=== PATIENT | female | born 1945 | race Hispanic/Latino ===

== ENCOUNTER → 2017-11-19 | Outpatient (CLI) | payer OTHER | END | disposition home or self-care (01) | LOC: RAH 08:43 | PROVIDERS: ATTEND Family Medicine | DX: Z12.31 Encounter for screening mammogram for malignant neoplasm of breast (principal); I10 Essential (primary) hypertension; E11.9 Type 2 diabetes mellitus without complications; E78.5 Hyperlipidemia, unspecified; M81.0 Age-related osteoporosis without current pathological fracture; Z79.899 Other long term (current) drug therapy | CPT/HCPCS: 77067 ==

== ENCOUNTER → 2018-03-22 | Outpatient (CLI) | payer OTHER ==
[~2018-03-22] MED LIST: IOHEXOL 350 MG/ML 100ML INFUS..BTL IV ONE
== END | disposition home or self-care (01) ==
LOC: OIH 08:59
PROVIDERS: ATTEND Obstetrics & Gynecology
DX: R16.0 Hepatomegaly, not elsewhere classified (principal); K57.90 Diverticulosis of intestine, part unspecified, without perforation or abscess without bleeding
CPT/HCPCS: 74178; Q9967

== ENCOUNTER → 2018-11-11 | Outpatient (CLI) | payer OTHER | END | disposition home or self-care (01) | LOC: RAH 09:27 | PROVIDERS: ATTEND Family Medicine | DX: Z12.31 Encounter for screening mammogram for malignant neoplasm of breast (principal) | CPT/HCPCS: 77067 ==

== ENCOUNTER → 2019-01-06 | Outpatient (CLI) | payer OTHER ==
[2019-01-06 09:24] LABS: BASOPHILS % (AUTO) 0.3 % (0.0-5.0); EOSINOPHILS % (AUTO) 1.1 % (0.0-8.0); HEMATOCRIT 37.9 % (36-48); LYMPHOCYTES % (AUTO) 27.2 % (21.0-51.0); MEAN CORPUSCULAR HEMOGLOBIN 28.6 pg (27.0-33.0); MEAN CORPUSCULAR HGB CONC 33.5 g/dL (32.0-36.0); MEAN CORPUSCULAR VOLUME 85.4 fL (79-99); MONOCYTES % (AUTO) 5.8 % (3.0-13.0); NEUTROPHILS % (AUTO) 65.6 % (40.0-77.0); PLATELET COUNT (AUTO) 200 K/uL (130-400); RED BLOOD CELL COUNT(AUTO) 4.44 MIL/uL (4.00-5.50); RED CELL DISTRIBUTION WIDTH 15.7 % (11.0-15.5); WHITE BLOOD COUNT (AUTO) 8.3 K/uL (4.8-10.8)
[2019-01-06 09:34] LABS: HEMOGLOBIN A1C 8.2 % (4.0-6.0)
[2019-01-06 09:49] LABS: ALBUMIN 3.3 g/dL (3.5-5.0); BILIRUBIN,DIRECT 0.2 mg/dL (0.0-0.3); BILIRUBIN,TOTAL 0.4 mg/dL (0.2-1.0); CREATININE 0.9 mg/dL (0.5-1.5); THYROID STIMULATING HORMONE 0.84 uIU/mL (0.36-3.74); TOTAL PROTEIN, SERUM 7.3 g/dL (6.0-8.3); URIC ACID 6.8 mg/dL (2.6-7.2)
== END | disposition home or self-care (01) ==
LOC: LAB 08:33
PROVIDERS: ATTEND Internal Medicine
DX: Z12.11 Encounter for screening for malignant neoplasm of colon (principal); E11.65 Type 2 diabetes mellitus with hyperglycemia; I10 Essential (primary) hypertension; R10.13 Epigastric pain; E53.8 Deficiency of other specified B group vitamins; E26.1 Secondary hyperaldosteronism; E11.51 Type 2 diabetes mellitus with diabetic peripheral angiopathy without gangrene; E11.59 Type 2 diabetes mellitus with other circulatory complications; E11.40 Type 2 diabetes mellitus with diabetic neuropathy, unspecified; M81.0 Age-related osteoporosis without current pathological fracture
CPT/HCPCS: 36415; 80053; 80061; 80076; 82043; 82270; 82306; 83036; 83970; 84443; 84550; 85025; 86677

== ENCOUNTER → 2019-03-27 | Outpatient (CLI) | payer OTHER ==
[~2019-03-27] VITALS: Ht 134.6 cm; Wt 74.4 kg
[~2019-03-27] MED LIST changes: -IOHEXOL 350 MG/ML 100ML INFUS..BTL IV ONE; +REGADENOSON 0.4 MG/5 ML PF SYG IVP SCH
== END | disposition home or self-care (01) ==
LOC: RAH 08:34
PROVIDERS: ATTEND Internal Medicine
DX: I50.30 Unspecified diastolic (congestive) heart failure (principal)
CPT/HCPCS: 78452; 93017; 96374; A9500 ×2; J2785

== ENCOUNTER → 2019-07-17 | Outpatient (CLI) | payer OTHER ==
[2019-07-17 08:41] LABS: BASOPHILS % (AUTO) 0.5 % (0.0-5.0); EOSINOPHILS % (AUTO) 1.6 % (0.0-8.0); HEMATOCRIT 37.8 % (36-48); LYMPHOCYTES % (AUTO) 40.9 % (21.0-51.0); MEAN CORPUSCULAR HEMOGLOBIN 28.2 pg (27.0-33.0); MEAN CORPUSCULAR HGB CONC 31.2 g/dL (32.0-36.0); MEAN CORPUSCULAR VOLUME 90.2 fL (79-99); MONOCYTES % (AUTO) 7.6 % (3.0-13.0); NEUTROPHILS % (AUTO) 49.1 % (40.0-77.0); PLATELET COUNT (AUTO) 237 K/uL (130-400); RED BLOOD CELL COUNT(AUTO) 4.19 MIL/uL (4.00-5.50); WHITE BLOOD COUNT (AUTO) 6.5 K/uL (4.8-10.8)
[2019-07-17 08:55] LABS: HEMOGLOBIN A1C 8.3 % (4.0-6.0)
[2019-07-17 09:01] LABS: ALBUMIN 3.4 g/dL (3.5-5.0); BILIRUBIN,DIRECT 0.1 mg/dL (0.0-0.3); POTASSIUM 4.1 mmol/L (3.5-5.1); THYROID STIMULATING HORMONE 0.42 uIU/mL (0.36-3.74); TOTAL PROTEIN, SERUM 7.3 g/dL (6.0-8.3); URIC ACID 7.4 mg/dL (2.6-7.2)
[2019-07-17 09:04] LABS: BILIRUBIN,TOTAL 0.5 mg/dL (0.2-1.0); CREATININE 0.7 mg/dL (0.5-1.5)
== END | disposition home or self-care (01) ==
LOC: LAB 07:31
PROVIDERS: ATTEND Internal Medicine
DX: I11.0 Hypertensive heart disease with heart failure (principal); I50.30 Unspecified diastolic (congestive) heart failure; A04.8 Other specified bacterial intestinal infections; R10.13 Epigastric pain; R93.1 Abnormal findings on diagnostic imaging of heart and coronary circulation; E11.40 Type 2 diabetes mellitus with diabetic neuropathy, unspecified; E53.8 Deficiency of other specified B group vitamins; Z12.11 Encounter for screening for malignant neoplasm of colon; Z13.1 Encounter for screening for diabetes mellitus
CPT/HCPCS: 36415; 80053; 80061; 80076; 82043; 82270; 83036; 83090; 83970; 84443; 84550; 85025

== ENCOUNTER 2019-08-21 22:25 | Observation (INO) | payer OTHER ==
[~2019-08-21] VITALS: Ht 154.9 cm; Wt 71.4 kg
[2019-08-21 23:14] LABS: BASOPHILS % (AUTO) 0.5 % (0.0-5.0); EOSINOPHILS % (AUTO) 1.5 % (0.0-8.0); HEMATOCRIT 37.1 % (36-48); LYMPHOCYTES % (AUTO) 31.2 % (21.0-51.0); MEAN CORPUSCULAR HEMOGLOBIN 27.8 pg (27.0-33.0); MEAN CORPUSCULAR HGB CONC 31.3 g/dL (32.0-36.0); MONOCYTES % (AUTO) 6.7 % (3.0-13.0); NEUTROPHILS % (AUTO) 59.9 % (40.0-77.0); PLATELET COUNT (AUTO) 228 K/uL (130-400); RED BLOOD CELL COUNT(AUTO) 4.17 MIL/uL (4.00-5.50); RED CELL DISTRIBUTION WIDTH 14.6 % (11.0-15.5); WHITE BLOOD COUNT (AUTO) 8.5 K/uL (4.8-10.8)
[2019-08-21 23:24] LABS: CREATININE 0.8 mg/dL (0.5-1.5); POTASSIUM 4.1 mmol/L (3.5-5.1)
[2019-08-21 23:28] LABS: INR 0.89 (0.85-1.15); PARTIAL THROMBOPLASTIN TIME 26.6 SEC (26.3-35.5); PROTHROMBIN TIME 9.7 SEC (9.6-11.6)
[2019-08-21 23:29] LABS: ALBUMIN 3.8 g/dL (3.5-5.0); BILIRUBIN,TOTAL 0.3 mg/dL (0.2-1.0); TOTAL PROTEIN, SERUM 7.8 g/dL (6.0-8.3)
[2019-08-21 23:48] LABS: APPEARANCE,URINE Clear (CLEAR); BILIRUBIN,URINE Negative (NEGATIVE); COLOR,URINE Yellow (YELLOW); GLUCOSE, URINE (UA) Negative (NEGATIVE); KETONES,URINE Negative (NEGATIVE); LEUKOCYTE ESTERASE ,URINE Negative (NEGATIVE); NITRATE,URINE Negative (NEGATIVE); OCCULT BLOOD,URINE Negative (NEGATIVE); PROTEIN,URINE Negative (NEGATIVE); UROBILINOGEN,URINE 0.2 mg/dL (0.2-1.0)
[2019-08-22] VITALS (7 sets, daily range): BP systolic 140–184; BP diastolic 68–82
[2019-08-22] MEDS ORDERED: 1/2 NORMAL SALINE 1,000 ML IV SCH (00:15)
[2019-08-22] MEDS ORDERED: 1/2 NORMAL SALINE 1,000 ML IV ONE (00:18)
--- NOTE | 2019-08-22 01:00 | NUR ---
TEXTED DR. MENDOZA ABOUT PATIENT'S ARRIVAL TO THE FLOOR FROM ER. DOCTOR REPLIED BACK AND IS AWARE.
[2019-08-22] MEDS ORDERED: METF-446 PO (01:51)
[2019-08-22] MEDS ORDERED: CYAN1TAB44 PO (01:51)
[2019-08-22] MEDS ORDERED: ATOR10 PO (01:51)
[2019-08-22] MEDS ORDERED: LISI40TA4 PO (01:51)
[2019-08-22] MEDS ORDERED: GLIM4TAB36 PO (01:51)
[2019-08-22 02:59] LABS: HEMATOCRIT 31.8 % (36-48)
--- NOTE | 2019-08-22 06:52 | NUR ---
patient had 1 bright red stool in the ER and 2 bright red stools with clots at 03:00 am and at 07:[address] Martinez spoke with the patient and ordered cbc with cmp in the am of 08/23/19
[2019-08-22 07:17] LABS: HEMATOCRIT 31.9 % (36-48)
--- NOTE | 2019-08-22 11:35 | NUR ---
NURSING NOTE Paged Dr. Ford. Received called back form himearlier. And now from nurse. SHe asked several questions about case and stated she will call back with recommendations.
[2019-08-22] MEDS ORDERED: PEG 3350/NA SULF,BICARB,CL/KCL 4000 ML SOLN PO ONE (14:00)
--- NOTE | 2019-08-22 15:24 | NUR ---
COLONOSCOPY Patient started on golytely at 1400 in preparation for colonoscopy tomorrow at 10:00am as ordered by Dr. Ford. Procedure will be done by Dr. Randhawa.
--- NOTE | 2019-08-22 20:15 | NUR ---
COLONOSCOPY PREPARATION AND UPDATE Patient finished her colonoscopy preparation soon and has been having bowel movements. States the color os yellow and that she has no more stool coming out; not even small pieces. States she is not bleeding anymore. Signed consent for colonoscopy and filed in chart. Tolerated preparation well. NPO after midnight.
[2019-08-23] VITALS (21 sets, daily range): BP systolic 142–179; BP diastolic 66–111
[2019-08-23 05:01] LABS: HEMATOCRIT 30.3 % (36-48); MEAN CORPUSCULAR VOLUME 87.3 fL (79-99); PLATELET COUNT (AUTO) 197 K/uL (130-400); RED BLOOD CELL COUNT(AUTO) 3.47 MIL/uL (4.00-5.50); RED CELL DISTRIBUTION WIDTH 14.3 % (11.0-15.5); WHITE BLOOD COUNT (AUTO) 6.9 K/uL (4.8-10.8)
[2019-08-23 05:02] LABS: ALBUMIN 3.1 g/dL (3.5-5.0); BILIRUBIN,TOTAL 0.3 mg/dL (0.2-1.0); CREATININE 0.8 mg/dL (0.5-1.5); POTASSIUM 3.9 mmol/L (3.5-5.1); TOTAL PROTEIN, SERUM 6.7 g/dL (6.0-8.3)
[2019-08-23 05:26] LABS: LYMPHOCYTES % (MANUAL) 32 % (22-44); MAN.DIFF COMMENT-IMPRESSION MANUAL DIFFERENTIAL; MONOCYTES % (MANUAL) 2 % (2-9); PLATELET MORPHOLOGY COMMENT ADEQUATE; SEGMENTED NEUTROPHILS % 66 % (40-70)
[2019-08-23] MEDS ORDERED: PROPOFOL 10 MG/ML 20ML VIAL IV ONE (10:27)
--- NOTE | 2019-08-23 13:52 | NUR ---
ATTEMPT TO UPDATE DR. KEANE CALLED AND LEFT MESSAGE WITH DR. KEANE'S NURSES STATION, READ THE COLONOSCOPY RESULTS AND REDCOMENDATIONS. ADVISED PATIENT DOES NOT MEET IN PATIENT STATUS INSTRUCTED BY CASE MANAGEMENT. LEFT TWO CALL BACK NUMBERS, ONE FOR THE NURSES STATION POD B AND THE OTHER TO [place] # [phone].
[2019-08-23 17:29] LABS: HEMATOCRIT 30.8 % (36-48)
--- NOTE | 2019-08-23 19:03 | NUR ---
PATIENT DISCHARGE PATIENT DISCHARGED, IV DISCONTINUED, CATHLON INTACT, BLEEDING CONTROLLED, PATIENT TOLERATED WITHOUT INCIDENT.
== END 2019-08-23 19:03 | disposition home or self-care (01) ==
LOC: EDH 22:25 → EDHIP 23:41 → 3BH 08-22 01:13
PROVIDERS: ADMIT Internal Medicine; ATTEND Internal Medicine
DX: K92.2 Gastrointestinal hemorrhage, unspecified (principal); E11.9 Type 2 diabetes mellitus without complications; I10 Essential (primary) hypertension; E78.5 Hyperlipidemia, unspecified; Z90.710 Acquired absence of both cervix and uterus; Z85.038 Personal history of other malignant neoplasm of large intestine; Z90.49 Acquired absence of other specified parts of digestive tract; Z79.899 Other long term (current) drug therapy
CPT/HCPCS: 36415 ×3; 45378; 80053 ×2; 81003; 82270; 82948 ×8; 85014 ×4; 85018 ×4; 85025 ×2; 85610; 85730; 86850; 86900; 86901; 86922; 99284; A4222; A4223; A4606; A4615; G0378 ×3; J2704; J7030

== ENCOUNTER → 2019-11-13 | Outpatient (CLI) | payer OTHER | END | disposition home or self-care (01) | LOC: RAH 08:26 | PROVIDERS: ATTEND Internal Medicine | DX: Z12.31 Encounter for screening mammogram for malignant neoplasm of breast (principal) ==

== ENCOUNTER 2019-11-17 19:10 | Inpatient (IN) | payer OTHER ==
[~2019-11-17] VITALS: Ht 154.9 cm; Wt 72.7 kg
[~2019-11-17 19:10] MED LIST changes: +ATOR10 PO; +CYAN1TAB44 PO; +GLIM4TAB36 PO; +LISI40TA4 PO; +METF-446 PO; -REGADENOSON 0.4 MG/5 ML PF SYG IVP SCH
[2019-11-17 19:38] LABS: APPEARANCE,URINE Clear (CLEAR); BILIRUBIN,URINE Negative (NEGATIVE); COLOR,URINE Yellow (YELLOW); GLUCOSE, URINE (UA) Negative (NEGATIVE); KETONES,URINE Trace mg/dL (NEGATIVE); LEUKOCYTE ESTERASE ,URINE Negative (NEGATIVE); NITRATE,URINE Negative (NEGATIVE); OCCULT BLOOD,URINE Small (NEGATIVE); PROTEIN,URINE Trace mg/dL (NEGATIVE); UROBILINOGEN,URINE 0.2 mg/dL (0.2-1.0)
[2019-11-17 19:48] LABS: BASOPHILS % (AUTO) 0.1 % (0.0-5.0); EOSINOPHILS % (AUTO) 0.8 % (0.0-8.0); HEMATOCRIT 29.6 % (36-48); LYMPHOCYTES % (AUTO) 28.2 % (21.0-51.0); MEAN CORPUSCULAR HEMOGLOBIN 24.8 pg (27.0-33.0); MEAN CORPUSCULAR HGB CONC 30.1 g/dL (32.0-36.0); MEAN CORPUSCULAR VOLUME 82.5 fL (79-99); MONOCYTES % (AUTO) 4.4 % (3.0-13.0); NEUTROPHILS % (AUTO) 66.3 % (40.0-77.0); PLATELET COUNT (AUTO) 246 K/uL (130-400); RED BLOOD CELL COUNT(AUTO) 3.59 MIL/uL (4.00-5.50); RED CELL DISTRIBUTION WIDTH 15.4 % (11.0-15.5); WHITE BLOOD COUNT (AUTO) 8.6 K/uL (4.8-10.8)
[2019-11-17 19:51] LABS: BACTERIA,URINE Few /HPF (None Seen); MUCUS,URINE Few LPF (None Seen); SQUAMOUS EPITHELIAL CELL,UR Moderate /HPF (0-2)
[2019-11-17 19:58] LABS: POTASSIUM 5.1 mmol/L (3.5-5.1)
[2019-11-17 20:05] LABS: ALBUMIN 3.4 g/dL (3.5-5.0); BILIRUBIN,TOTAL 0.2 mg/dL (0.2-1.0); TOTAL PROTEIN, SERUM 7.3 g/dL (6.0-8.3)
[2019-11-17 20:15] LABS: INR 0.92 (0.85-1.15); PARTIAL THROMBOPLASTIN TIME 27.6 SEC (26.3-35.5)
[2019-11-17] MEDS ORDERED: 1/2 NORMAL SALINE 1,000 ML IV SCH (22:15)
[2019-11-17 22:40] VITALS: BP 163/78
[2019-11-17] MEDS ORDERED: DICL50TA7 PO (22:42)
[2019-11-18 00:35] LABS: HEMATOCRIT 26.8 % (36-48)
--- NOTE | 2019-11-18 00:50 | NUR ---
rectal bleed large rectal bleeding,stat hgb 8.2, c/o nausea, no vomiting, b/p 190/89, called dr. self informed of rectal bleed, hgb results and nausea with orders and parameters for transfusion, zofran 4 g ivp given as ordered
[2019-11-18] MEDS ORDERED: ONDANSETRON HCL 4 MG/2 ML VIAL ONE (00:51)
[2019-11-18] MEDS ORDERED: ONDANSETRON HCL 4 MG/2 ML VIAL IVP PRN (01:00)
[2019-11-18 04:32] VITALS: BP 125/63
[2019-11-18 05:25] LABS: HEMATOCRIT 24.3 % (36-48); MEAN CORPUSCULAR HGB CONC 30.5 g/dL (32.0-36.0); MEAN CORPUSCULAR VOLUME 82.1 fL (79-99); RED BLOOD CELL COUNT(AUTO) 2.96 MIL/uL (4.00-5.50); RED CELL DISTRIBUTION WIDTH 15.5 % (11.0-15.5); WHITE BLOOD COUNT (AUTO) 8.1 K/uL (4.8-10.8)
[2019-11-18 05:42] LABS: CREATININE 1.7 mg/dL (0.5-1.5); POTASSIUM 4.7 mmol/L (3.5-5.1)
[2019-11-18 07:56] VITALS: BP 139/78
[2019-11-18] MEDS: METFORMIN HCL 500 MG TABLET PO SCH ×2 (08:00→17:47)
[2019-11-18] MEDS: GLIMEPIRIDE 2 MG TABLET PO SCH (08:13)
[2019-11-18] MEDS: FOLIC ACID 1 MG TABLET PO SCH (08:13)
[2019-11-18] MEDS: LISINOPRIL 40 MG TABLET PO SCH (08:13)
[2019-11-18] MEDS: DICLOFENAC 50 MG PO SCH ×3 (08:13→17:00)
[2019-11-18] MEDS: CYANOCOBALAMIN (VITAMIN B-12) 1,000 MCG TABLET PO SCH (08:13)
[2019-11-18] MEDS: PANTOPRAZOLE 40 MG/VIAL IVP SCH (08:13)
--- NOTE | 2019-11-18 09:07 | NUR ---
DR JUDD CALLED BACK. AWARE OF CONSULT. CLEAR LIQUID DIET ORDERED. STATED THAT HE WILL CALL BACK WITH FURTHER ORDERS LATER ON TODAY.
[2019-11-18] MEDS ORDERED: LIDOCAINE HCL-MPF 1% 2ML VIAL IV PRN (10:30)
[2019-11-18] MEDS ORDERED: POTASSIUM CHLORIDE 20MEQ/100ML 100 ML IV PRN (10:30)
[2019-11-18 11:22] VITALS: BP 138/87
[2019-11-18 12:10] LABS: HEMATOCRIT 25.1 % (36-48)
[2019-11-18 16:21] VITALS: BP 170/75
--- NOTE | 2019-11-18 17:51 | NUR ---
D/C PLAN CM spoke to pt regarding d/c planning. Pt lives with spouse. Spouse assists in care as needed. Pt has wk but does not use. Plan to home. No needs verbalized or identified. CM to f/u. Addendum: 11/18/19 at 1752 by JANA GRAFF CM Amended: Links added.
[2019-11-18 19:18] VITALS: BP 129/83
[2019-11-18 22:33] LABS: HEMATOCRIT 26.5 % (36-48)
--- NOTE | 2019-11-18 22:50 | NUR ---
PATIENT BACK FROM BLEEDING SCAN. AWARE OF RESULTS. NO NEW ORDERS AT THIS TIME. PATIENT AWARE. RESP EVEN AND UNLABORED. NO SOB NOTED. ON ROOM AIR. NO COMPLAINTS OF PAIN VOICED AT THIS TIME. VITALS STABLE. AFEBRILE. HGB AND HCT WNL. NO SIGNS OF DISTRESS NOTED. CALL LIGHT WITHIN REACH. WILL CONTINUE TO BE OBSERVED. Addendum: 11/18/19 at 2336 by ORALIA FINLEY RN RN Amended: Links added.
[2019-11-18 23:14] VITALS: BP 139/72
[2019-11-19 03:00] VITALS: BP 127/66
[2019-11-19 05:06] LABS: HEMATOCRIT 24.1 % (36-48); MEAN CORPUSCULAR HEMOGLOBIN 24.7 pg (27.0-33.0); MEAN CORPUSCULAR HGB CONC 30.3 g/dL (32.0-36.0); MEAN CORPUSCULAR VOLUME 81.4 fL (79-99); PLATELET COUNT (AUTO) 217 K/uL (130-400); RED BLOOD CELL COUNT(AUTO) 2.96 MIL/uL (4.00-5.50); RED CELL DISTRIBUTION WIDTH 15.6 % (11.0-15.5); WHITE BLOOD COUNT (AUTO) 7.2 K/uL (4.8-10.8)
[2019-11-19 05:33] LABS: POTASSIUM 3.6 mmol/L (3.5-5.1)
[2019-11-19 05:39] LABS: LYMPHOCYTES % (MANUAL) 60 % (22-44); MAN.DIFF COMMENT-IMPRESSION MANUAL DIFFERENTIAL; MONOCYTES % (MANUAL) 4 % (2-9); PLATELET MORPHOLOGY COMMENT ADEQUATE; SEGMENTED NEUTROPHILS % 36 % (40-70)
[2019-11-19 08:00] VITALS: BP 146/80
[2019-11-19] MEDS: LISINOPRIL 40 MG TABLET PO SCH (08:24)
[2019-11-19] MEDS: GLIMEPIRIDE 2 MG TABLET PO SCH (08:24)
[2019-11-19] MEDS: PANTOPRAZOLE 40 MG/VIAL IVP SCH (08:24)
[2019-11-19] MEDS: METFORMIN HCL 500 MG TABLET PO SCH ×2 (08:24→17:00)
[2019-11-19] MEDS: CYANOCOBALAMIN (VITAMIN B-12) 1,000 MCG TABLET PO SCH (08:24)
[2019-11-19] MEDS: FOLIC ACID 1 MG TABLET PO SCH (08:24)
[2019-11-19] MEDS: DICLOFENAC 50 MG PO SCH ×4 (08:25→20:41)
[2019-11-19 11:18] VITALS: BP 146/72
[2019-11-19 13:52] LABS: HEMATOCRIT 22.4 % (36-48)
[2019-11-19] MEDS ORDERED: SODIUM CHLORIDE 0.9% 250 ML IV ONE (15:32)
[2019-11-19 16:35] VITALS: BP 161/76
--- NOTE | 2019-11-19 17:00 | NUR ---
BLOOD SUGAR OF 58, OFFER DIET. AND WAS ORDER A BLOOD LAB GLUCOSE UP TO 94 DID NOT GIVE HER METOFORMIN MEDICATION . DUE; TO THE LOW BLOOD SUGAR . STATUS, WILL EAT HER SUPPER AND WILL BE MONITOR AGAIN THIS PM.
--- NOTE | 2019-11-19 19:00 | NUR ---
BLOOD TRANSFUSION COMPLETED , NOTED NO REACTIONS . SEE BLOOD TRANSFUSION FLOW SHEET FOR V/S AND TIMES. REPORT TRANFUSED FOR A HGB OF 6.8 .
[2019-11-19 20:00] VITALS: BP 176/85
[2019-11-19] MEDS: ATORVASTATIN CALCIUM 20 MG TABLET PO SCH ×2 (20:40→20:41)
[2019-11-19 23:40] VITALS: BP 139/76
[2019-11-20 03:43] VITALS: BP 154/79
[2019-11-20 05:09] LABS: HEMATOCRIT 27.6 % (36-48)
--- NOTE | 2019-11-20 06:21 | NUR ---
MD MARGARITA DE LOS SANTOS VISITED WIT PATIENT. PLAN OF CARE DISCUSSED. NEW ORDERS RECEIVED. PATIENT AWARE. WILL CONTINUE TO BE OBSERVED. NO QUESTIONS OR CONCERNS VOICED AT THIS TIME. CALL LIGHT WITHIN REACH. Addendum: 11/20/19 at 0623 by ORALIA FINLEY RN RN Amended: Links added.
[2019-11-20] MEDS ORDERED: COMPOUND IV MISC 1 EACH IVSOLN MISC PRN (06:30)
[2019-11-20 07:30] VITALS: BP 171/86
[2019-11-20] MEDS: PANTOPRAZOLE 40 MG/VIAL IVP SCH (08:57)
[2019-11-20] MEDS: GLIMEPIRIDE 2 MG TABLET PO SCH (08:57)
[2019-11-20] MEDS: FOLIC ACID 1 MG TABLET PO SCH (08:57)
[2019-11-20] MEDS: LISINOPRIL 40 MG TABLET PO SCH (08:58)
[2019-11-20] MEDS: METFORMIN HCL 500 MG TABLET PO SCH (08:58)
[2019-11-20] MEDS: CYANOCOBALAMIN (VITAMIN B-12) 1,000 MCG TABLET PO SCH (08:58)
[2019-11-20] MEDS: DICLOFENAC 50 MG PO SCH ×2 (08:59→13:00)
[2019-11-20] MEDS ORDERED: IRON SUCROSE COMPLEX 100 MG in SODIUM CHLORIDE 0.9% 50 ML IV SCH (09:00)
[2019-11-20 11:00] VITALS: BP 158/80
--- NOTE | 2019-11-20 12:05 | NUR ---
NUTRITION EDUCATION BLAINE provided Diabetes nutrition education with Pt and Pt's daughter. BLAINE reviewed reference materials. Materials provided in Polish and Maori. BLAINE encouraged Pt to notify as additional concerns arise. Pt and daughter verbalized understanding. Addendum: 11/20/19 at [address] Amended: Links added.
--- NOTE | 2019-11-20 14:10 | NUR ---
PT AND DAUGHTER STATED UNDERSTANDING OF ALL D/C INSTRUCTIONS ON AFTER CARE AFTER GI BLEED, ANEMIA AND DIVERTICULITIS; NO SCRIPTS, I TOLD HER WHEN F/U APPOINTMENTS ARE AND TO CONT. ALL HOME MEDS AND RETURN TO ED FOR RETURN OF BLEEDING OR OTHER PROBLEMS OR CONCERNS; IV ACCESS REMOVED AND TELEBOX REMOVED. PT USHA. FULL LIQUID BREAKFAST AND SOFT BLAND LUNCH WITH NO NAUSEA OR VOMITING; PT STATES SHE IS READY TO GO HOME.
--- NOTE | 2019-11-20 14:51 | NUR ---
NO RETURN CALL OF YET FROM DR MENDOZA; I HAVE CALLED HIS OFFICE AND LEFT A MESSAGE AT HIS OFFICE FOR HIM TO CALL. Addendum: 11/20/19 at 1457 by SHAWN ENRIQUEZ RN RN CANCEL NOTE ON WRONG PATIENT
== END 2019-11-20 14:30 | disposition home or self-care (01) | DRG 377 ==
LOC: EDH 19:10 → EDHIP 21:54 → 3DH 22:05
PROVIDERS: ADMIT Internal Medicine; ATTEND Internal Medicine
PROC: 30233N1 Transfusion of Nonautologous Red Blood Cells into Peripheral Vein, Percutaneous Approach (ICD-10-PCS; principal; 2019-11-17)
DX: K57.31 Diverticulosis of large intestine without perforation or abscess with bleeding (principal); N17.0 Acute kidney failure with tubular necrosis; D62 Acute posthemorrhagic anemia; D64.9 Anemia, unspecified; I10 Essential (primary) hypertension; E11.9 Type 2 diabetes mellitus without complications; E78.5 Hyperlipidemia, unspecified; Z85.038 Personal history of other malignant neoplasm of large intestine
CPT/HCPCS: 36415; 36430; 74176; 78278; 80048; 80053; 81001; 82947; 82948; 83020; 85014; 85018; 85025; 85027; 85610; 85730; 86850; 86900; 86901; 86922; A9512; C9113; G0378; J1756; J2405; J7050; P9016

== ENCOUNTER → 2020-12-02 | Outpatient (CLI) | payer OTHER ==
[~2020-12-02] MED LIST changes: +DICL50TA7 PO; -LISI40TA4 PO; +LISI40TA9 PO
== END | disposition home or self-care (01) ==
LOC: RAH 10:12
PROVIDERS: ATTEND Internal Medicine
DX: M47.816 Spondylosis without myelopathy or radiculopathy, lumbar region (principal); M85.88 Other specified disorders of bone density and structure, other site; M16.0 Bilateral primary osteoarthritis of hip; M17.0 Bilateral primary osteoarthritis of knee; M25.761 Osteophyte, right knee; M25.762 Osteophyte, left knee
CPT/HCPCS: 72100; 73521

== ENCOUNTER → 2022-10-13 | Outpatient (CLI) | payer OTHER ==
[~2022-10-13] MED LIST changes: +IOHEXOL-350 75 ML VIAL IV ONE
== END | disposition home or self-care (01) ==
LOC: RAH 10:00
PROVIDERS: ATTEND Surgery
DX: K57.90 Diverticulosis of intestine, part unspecified, without perforation or abscess without bleeding (principal); K76.89 Other specified diseases of liver; N28.1 Cyst of kidney, acquired; N32.89 Other specified disorders of bladder; N28.89 Other specified disorders of kidney and ureter; R16.0 Hepatomegaly, not elsewhere classified; M47.815 Spondylosis without myelopathy or radiculopathy, thoracolumbar region
CPT/HCPCS: 74178; Q9967

== ENCOUNTER → 2022-11-25 | Outpatient (CLI) | payer OTHER ==
[~2022-11-25] MED LIST changes: -IOHEXOL-350 75 ML VIAL IV ONE
== END | disposition home or self-care (01) ==
LOC: RAH 09:48
PROVIDERS: ATTEND Internal Medicine
DX: Z12.31 Encounter for screening mammogram for malignant neoplasm of breast (principal)
CPT/HCPCS: 77067

== ENCOUNTER → 2023-05-11 | Outpatient (CLI) | payer OTHER | END | disposition home or self-care (01) | LOC: OIH 10:31 | PROVIDERS: ATTEND Internal Medicine | DX: I70.0 Atherosclerosis of aorta (principal); R06.02 Shortness of breath; R10.11 Right upper quadrant pain; M47.815 Spondylosis without myelopathy or radiculopathy, thoracolumbar region | CPT/HCPCS: 71046 ==

== ENCOUNTER → 2023-07-09 | Outpatient (CLI) | payer OTHER ==
[2023-07-09 09:33] LABS: BASOPHILS # (AUTO) 0.01 K/uL (0.00-0.20); BASOPHILS % (AUTO) 0.2 % (0.0-5.0); EOSINOPHILS # (AUTO) 0.06 K/uL (0.00-0.70); EOSINOPHILS % (AUTO) 1.4 % (0.0-8.0); HEMATOCRIT 39.8 % (36-48); IMMATURE GRANULOCYTE ABSOLUTE 0.01 K/uL (0-1); LYMPHOCYTES # (AUTO) 1.4 K/uL (1.0-4.8); LYMPHOCYTES % (AUTO) 32.4 % (21.0-51.0); MEAN CORPUSCULAR HEMOGLOBIN 30.2 pg (27.0-33.0); MEAN CORPUSCULAR HGB CONC 33.4 g/dL (32.0-36.0); MEAN CORPUSCULAR VOLUME 90.2 fL (79-99); MONOCYTES # (AUTO) 0.4 K/uL (0.1-1.0); MONOCYTES % (AUTO) 9.2 % (3.0-13.0); NEUTROPHILS # (AUTO) 2.5 K/uL (1.8-7.7); NEUTROPHILS % (AUTO) 56.6 % (40.0-77.0); PLATELET COUNT (AUTO) 178 K/uL (130-400); RED BLOOD CELL COUNT(AUTO) 4.41 MIL/uL (4.00-5.50); RED CELL DISTRIBUTION WIDTH 15.2 % (11.0-15.5); WHITE BLOOD COUNT (AUTO) 4.4 K/uL (4.8-10.8)
[2023-07-09 09:56] LABS: ALBUMIN 3.2 g/dL (3.5-5.0); BILIRUBIN,TOTAL 0.3 mg/dL (0.2-1.0); POTASSIUM 3.9 mmol/L (3.5-5.1); TOTAL PROTEIN, SERUM 6.9 g/dL (6.0-8.3)
== END | disposition home or self-care (01) ==
LOC: RAH 08:57
PROVIDERS: ATTEND Internal Medicine
DX: Z01.818 Encounter for other preprocedural examination (principal); E11.42 Type 2 diabetes mellitus with diabetic polyneuropathy; I70.0 Atherosclerosis of aorta; M47.815 Spondylosis without myelopathy or radiculopathy, thoracolumbar region; I10 Essential (primary) hypertension; E11.65 Type 2 diabetes mellitus with hyperglycemia
CPT/HCPCS: 36415; 71046; 80053; 85025

== ENCOUNTER 2023-07-27 07:14 | Day surgery (SDC) | payer OTHER ==
[2023-07-22 11:23] LABS: BASOPHILS # (AUTO) 0.02 K/uL (0.00-0.20); BASOPHILS % (AUTO) 0.3 % (0.0-5.0); EOSINOPHILS # (AUTO) 0.09 K/uL (0.00-0.70); EOSINOPHILS % (AUTO) 1.4 % (0.0-8.0); IMMATURE GRANULOCYTE ABSOLUTE 0.02 K/uL (0-1); LYMPHOCYTES % (AUTO) 31.5 % (21.0-51.0); MEAN CORPUSCULAR HEMOGLOBIN 29.6 pg (27.0-33.0); MEAN CORPUSCULAR VOLUME 92.6 fL (79-99); MONOCYTES # (AUTO) 0.5 K/uL (0.1-1.0); MONOCYTES % (AUTO) 7.1 % (3.0-13.0); NEUTROPHILS # (AUTO) 3.7 K/uL (1.8-7.7); NEUTROPHILS % (AUTO) 59.4 % (40.0-77.0); PLATELET COUNT (AUTO) 203 K/uL (130-400); RED BLOOD CELL COUNT(AUTO) 4.43 MIL/uL (4.00-5.50); RED CELL DISTRIBUTION WIDTH 15.1 % (11.0-15.5); WHITE BLOOD COUNT (AUTO) 6.3 K/uL (4.8-10.8)
[2023-07-22 11:31] LABS: CREATININE 0.9 mg/dL (0.5-1.5); POTASSIUM 4.6 mmol/L (3.5-5.1)
[2023-07-22 11:41] VITALS: BP 167/82; PULSE 66; RESP 15
[2023-07-22 11:44] LABS: INR <= 0.93 (0.85-1.15); PROTHROMBIN TIME 10.3 SEC (9.6-11.6)
[~2023-07-27] VITALS: Ht 157.5 cm; Wt 68.5 kg
[2023-07-27] VITALS (25 sets, daily range): BP systolic 119–187; BP diastolic 58–80; PULSE 69–94; RESP 13–19
[~2023-07-27 07:14] MED LIST changes: +ALBU6.7H14 IH; +AMLO5TAB4 PO; -CYAN1TAB44 PO; +CYAN500T77 PO; -DICL50TA7 PO; +EMPA25TA PO; +SITA100T12 PO
[2023-07-27] MEDS: 0.9%NACL 1000ML 1,000 ML IV ONE (08:18)
[2023-07-27] MEDS ORDERED: ROCURONIUM BROMIDE 10MG/1ML 5ML VL ONE (09:26)
[2023-07-27] MEDS ORDERED: PROPOFOL 10 MG/ML 20ML VIAL IV ONE (09:26)
[2023-07-27] MEDS ORDERED: LIDOCAINE PF 100MG/5ML (2%) SYRINGE 5ML ONE (09:26)
[2023-07-27] MEDS ORDERED: EPINEPHRINE PF 1MG (1:1,000) 1 MG/ML AMP ONE (09:37)
[2023-07-27] MEDS ORDERED: BUPIVACAINE/PF 0.25% 30ML VIAL IJ ONE (09:37)
[2023-07-27] MEDS: CEFAZOLIN SODIUM 2 GM VIAL ONE (11:00)
[2023-07-27] MEDS ORDERED: FENTANYL CITRATE PF 50 MCG/1 ML 2ML VIAL ONE (11:17)
[2023-07-27] MEDS ORDERED: DOCU-116 PO (12:20)
[2023-07-27] MEDS ORDERED: METH-662 PO (12:20)
[2023-07-27] MEDS ORDERED: GABA-529 PO (12:20)
[2023-07-27] MEDS ORDERED: TRAM50TA4 PO (12:20)
[2023-07-27] MEDS ORDERED: ONDANSETRON 4MG INJ ONE (12:23)
[2023-07-27] MEDS ORDERED: NEOSTIGMINE METHYLSULFATE 1MG/ML IV ONE (12:23)
[2023-07-27] MEDS ORDERED: GLYCOPYRROLATE 0.2 MG/ML 5 ML VIAL ONE (12:23)
[2023-07-27] MEDS ORDERED: IOHEXOL-350 50ML VIAL IV ONE (12:29)
[2023-07-27] MEDS: MEPERIDINE-PF 25 MG/ML SYG ONE (13:14)
[2023-07-27] MEDS: ONDANSETRON 4MG INJ ONE (13:15)
[2023-07-27] MEDS: HYDRALAZINE 20MG/ML VIAL ONE (13:34)
[2023-07-27] MEDS: TRAMADOL HCL 50 MG TABLET ONE (14:43)
== END 2023-07-27 15:20 | disposition home or self-care (01) ==
LOC: DAH 07:14
PROVIDERS: ATTEND Surgery
DX: K80.10 Calculus of gallbladder with chronic cholecystitis without obstruction (principal); K43.2 Incisional hernia without obstruction or gangrene; K66.0 Peritoneal adhesions (postprocedural) (postinfection); I49.1 Atrial premature depolarization; I10 Essential (primary) hypertension; E78.5 Hyperlipidemia, unspecified; E11.9 Type 2 diabetes mellitus without complications; Z79.01 Long term (current) use of anticoagulants; Z79.899 Other long term (current) drug therapy; Z79.84 Long term (current) use of oral hypoglycemic drugs
CPT/HCPCS: 80048; 85025; 85610; 36415; 93005; 47563; 49615; 82948 ×2; 88304; 74300; 64488; A6260; A4663; J7030 ×3; A4215 ×2; C1758; J3010; J3490 ×2; J2001; J0360; J2704; J2405 ×2; J2710; J2175; Q9967; J0690; C1769 ×2; A4649 ×3; A4930 ×3; A4223; A4213; A4222; A4221; A4600 ×2; J0171; J0665

== ENCOUNTER → 2023-11-30 | Outpatient (CLI) | payer OTHER ==
[~2023-11-30] MED LIST changes: +DOCU-116 PO; +GABA-529 PO; +METH-662 PO; +TRAM50TA4 PO
== END | disposition home or self-care (01) ==
LOC: RAH 09:49
PROVIDERS: ATTEND Internal Medicine
DX: Z12.31 Encounter for screening mammogram for malignant neoplasm of breast (principal)
CPT/HCPCS: 77067

== ENCOUNTER → 2024-12-04 | Outpatient (CLI) | payer OTHER ==
[~2024-12-04] MED LIST changes: +LISI40TA15 PO; -LISI40TA9 PO
--- NOTE | 2024-12-05 06:21 | HMCIMG ---
EXAM: CR Chest, 2 views CLINICAL HISTORY: Chest wall pain. COMPARISON: None provided. FINDINGS: Hyperinflated lungs, compatible with mild COPD. Mild fibroatelectatic opacities in the bilateral lung bases. The lungs show no infiltrates or other acute findings. No pleural effusion or pneumothorax. The cardiomediastinal silhouette is within normal limits. Mild tortuous and atherosclerotic aorta. Presumed chronic fracture of the left 5th and 6th ribs. Mild osteopenia. Degenerative changes. IMPRESSION: No acute cardiopulmonary process is evident. Mild COPD. Mild fibroatelectatic opacities in the bilateral lung bases. Presumed chronic fracture of the left 5th and 6th ribs. /[place]
--- NOTE | 2024-12-05 06:23 | HMCIMG ---
EXAM: CR Left Ribs, 5 views. CLINICAL HISTORY: Pain. COMPARISON: None provided. FINDINGS: Presumed chronic fracture of the left 5th and 6th ribs in the posterior lateral aspect. Mild generalized osteopenia. Degenerative costochondral cartilages. IMPRESSION: Presumed chronic fracture of the left 5th and 6th ribs in the posterior lateral aspect. CT scan of the chest may be done for an optimal evaluation. /[place]
== END | disposition home or self-care (01) ==
LOC: RAH 16:27
PROVIDERS: ATTEND Internal Medicine
DX: J44.9 Chronic obstructive pulmonary disease, unspecified (principal); J98.4 Other disorders of lung; J98.11 Atelectasis; R07.89 Other chest pain; M94.8X8 Other specified disorders of cartilage, other site; M85.88 Other specified disorders of bone density and structure, other site; I70.0 Atherosclerosis of aorta
CPT/HCPCS: 71046; 71100

== ENCOUNTER → 2024-12-11 | Outpatient (CLI) | payer OTHER ==
--- NOTE | 2024-12-12 03:09 | HMCIMG ---
EXAM: CR Left Knee, 2 views. CLINICAL HISTORY: Left knee contusion. COMPARISON: Radiograph of the bilateral knees dated 12/02/2020. FINDINGS: No acute fracture or aggressive appearing osseous lesion. Mild osteopenia. Mild tricompartmental knee joint osteoarthritis. Small suprapatellar effusion. Mild enthesopathy around the distal quadriceps tendon. IMPRESSION: Small suprapatellar effusion is a new finding compared to the previous radiograph. The remaining findings are grossly unchanged. No acute bony abnormality is evident on radiographic evaluation. CT scan of the left knee joint may be done for an optimal evaluation. Mild osteopenia. Mild tricompartmental knee joint osteoarthritis. /[place]
== END | disposition home or self-care (01) ==
LOC: RAH 13:39
PROVIDERS: ATTEND Internal Medicine
DX: S80.02XA Contusion of left knee, initial encounter (principal); M17.12 Unilateral primary osteoarthritis, left knee; M25.462 Effusion, left knee; M85.88 Other specified disorders of bone density and structure, other site; M76.892 Other specified enthesopathies of left lower limb, excluding foot; X58.XXXA Exposure to other specified factors, initial encounter; Y93.89 Activity, other specified; Y92.89 Other specified places as the place of occurrence of the external cause; Y99.8 Other external cause status
CPT/HCPCS: 73560

== ENCOUNTER → 2024-12-14 | Outpatient (CLI) | payer OTHER ==
--- NOTE | 2024-12-15 04:31 | HMCIMG ---
EXAM: CR Pelvis, 1 view. CLINICAL HISTORY: Lumbosacral myelopathy. Pelvic pain. Gait instability. COMPARISON: None provided. FINDINGS: No acute fracture or aggressive appearing osseous lesion. Mild osteopenia. Mild osteoarthritis in the bilateral hip, sacroiliac, and symphysis pubis joints. Atherosclerotic vascular calcifications. Presumed tiny pelvic phleboliths. IMPRESSION: No acute bony abnormality is evident. Mild osteopenia. Mild osteoarthritis. /[place]
== END | disposition home or self-care (01) ==
LOC: RAH 13:07
PROVIDERS: ATTEND Internal Medicine
DX: M16.0 Bilateral primary osteoarthritis of hip (principal); M46.1 Sacroiliitis, not elsewhere classified; M85.80 Other specified disorders of bone density and structure, unspecified site; R10.2 Pelvic and perineal pain; G95.9 Disease of spinal cord, unspecified; R26.81 Unsteadiness on feet; I70.90 Unspecified atherosclerosis; I87.8 Other specified disorders of veins
CPT/HCPCS: 72170

== ENCOUNTER → 2024-12-19 | Outpatient (CLI) | payer OTHER ==
--- NOTE | 2024-12-20 05:03 | HMCIMG ---
EXAM: CT Lumbar Spine Without IV Contrast CLINICAL HISTORY: Spinal cord disease. TECHNIQUE: Spiral axial CT images through the lumbar spine were acquired, reconstructed in axial and sagittal projections, and imaged using soft tissue and bone algorithms. Reformatted/MPR images were performed. CT scan is done according to ALARA (As Low as Reasonably Achievable). CONTRAST: None. COMPARISON: X-ray lumbar spine dated 12/02/2020. FINDINGS: No acute fracture. Normal lordotic curvature. Normal vertebral body and disc heights. Diffuse osteopenia. Mild lumbar spondylosis with small multilevel marginal osteophytes and facet arthropathy. The surrounding soft tissues are unremarkable. Individual spinal levels are described as follows: T12-L1: No disc bulge or herniation. No neural foraminal, lateral recess or spinal canal stenosis. L1-L2: No disc bulge or herniation. No neural foraminal, lateral recess or spinal canal stenosis. L2-L3: No disc bulge or herniation. No neural foraminal, lateral recess or spinal canal stenosis. L3-L4: 2 mm diffuse disc bulge. No neural foraminal, lateral recess or spinal canal stenosis. L4-L5: 2 mm diffuse disc bulge with 3 mm postero-central disc protrusion. Mild bilateral lateral recess and neural foraminal stenosis. Mild spinal canal stenosis. L5-S1: No disc bulge or herniation. No neural foraminal, lateral recess or spinal canal stenosis. Moderate atheromatous vascular changes in the abdominal aorta. IMPRESSIONS: No acute abnormality. Mild lumbar spondylosis with small multilevel marginal osteophytes and facet arthropathy. Diffuse osteopenia. 2 mm diffuse disc bulge at L3-L4 without canal stenosis. 2 mm diffuse disc bulge and 3 mm postero-central disc protrusion at L4-L5 causing thecal sac indentation with mild bilateral lateral recess, neural foraminal and spinal canal stenosis. No gross interval changes. /[employer]
== END | disposition home or self-care (01) ==
LOC: RAH 13:18
PROVIDERS: ATTEND Internal Medicine
DX: M51.369 Other intervertebral disc degeneration, lumbar region without mention of lumbar back pain or lower extremity pain (principal); M51.26 Other intervertebral disc displacement, lumbar region; M47.816 Spondylosis without myelopathy or radiculopathy, lumbar region; M48.062 Spinal stenosis, lumbar region with neurogenic claudication; M85.88 Other specified disorders of bone density and structure, other site; I70.0 Atherosclerosis of aorta; G95.9 Disease of spinal cord, unspecified; R10.2 Pelvic and perineal pain; R26.81 Unsteadiness on feet; M25.78 Osteophyte, vertebrae
CPT/HCPCS: 72131

== ENCOUNTER → 2024-12-22 | Outpatient (CLI) | payer OTHER ==
--- NOTE | 2024-12-22 21:35 | HMCIMG ---
EXAM: CR left Knee, 2 View. CLINICAL HISTORY: CELLULITIS OF KNEE, LEFT; KNEE PAIN,LEFT COMPARISON: Study dated 12/11. FINDINGS: BONES: No acute fracture or aggressively appearing osseous lesion. Mild osteopenia. Mild enthesopathy around the distal quadriceps tendon. JOINTS: Mild tricompartmental knee joint osteoarthritis. Small suprapatellar effusion. SOFT TISSUES: The soft tissues are unremarkable. IMPRESSION: 1. Small suprapatellar effusion. The finding remains unchanged. 2. Mild tricompartmental knee joint osteoarthritis. 3. Mild osteopenia. Mild enthesopathy around the distal quadriceps tendon. 4. No acute bony abnormality is evident on radiographic evaluation. /[place]
== END | disposition home or self-care (01) ==
LOC: RAH 10:01
PROVIDERS: ATTEND Internal Medicine
DX: Z12.31 Encounter for screening mammogram for malignant neoplasm of breast (principal); M17.12 Unilateral primary osteoarthritis, left knee; M25.462 Effusion, left knee; M85.862 Other specified disorders of bone density and structure, left lower leg; M77.8 Other enthesopathies, not elsewhere classified; L03.116 Cellulitis of left lower limb; M25.562 Pain in left knee
CPT/HCPCS: 73560; 77067